=== PATIENT | male | born 1955 | race Caucasian/White ===

== ENCOUNTER → 2019-07-04 08:10 | Outpatient (CLI) | payer OTHER, MEDICARE, SELFPAY ==
[2019-07-04 08:58] LABS: Add Manual Diff / Slide Review NO; Basophils Absolute Auto 0 /uL (0-100); Basophils Percent Auto 0.8 % (0-2); Eosinophils Absolute Auto 300 /uL (0-450); Eosinophils Percent Auto 5.1 % (2-4); Hemoglobin 15.9 g/dL (13.5-17.5); Lymphocytes Absolute Auto 2800 /uL (1100-4500); Lymphocytes Percent Auto 53.3 % (25-40); Mean Corpuscular HGB Conc 34.6 % (30-36); Mean Corpuscular Hemoglobin 31.1 PG (26-34); Mean Corpuscular Volume 89.9 fL (80-100); Monocytes Absolute Auto 300 /uL (0-900); Monocytes Percent Auto 6.3 % (3-14); Neutrophils Absolute Auto 1800 /uL (1500-7000); Neutrophils Percent Auto 34.5 % (50-75); Platelet Count 257 X10^3/uL (150-400); Red Blood Cell Count 5.12 X10^6/uL (4.5-5.9); Red Cell Distribution Width 13.8 % (11.6-14.8); White Blood Cell Count 5.2 X10^3/uL (4.5-11.0)
[2019-07-04 09:11] LABS: Blood Urea Nitrogen 20 mg/dL (9-20); Carbon Dioxide 24 mmol/L (22-32); Chloride 105 mmol/L (98-107); Estimated Glomerular Filt Rate > 60.0 mL/min (>60); Glucose 145 mg/dL (80-110); HDL Cholesterol 41 mg/dL (40-60); HEMOLYSIS 16 (0-50); Potassium 4.1 mmol/L (3.4-5.1); Sodium 141 mmol/L (137-145)
[2019-07-04 09:13] LABS: Hemoglobin A1C% w Est Avg Glu 6.2 % (4.0-6.0)
[2019-07-04 09:34] LABS: Cholesterol 328 mg/dL (140-199); Triglycerides 640 mg/dL (35-150)
== END ==
PROVIDERS: PCP Family Medicine; Referring Provider Internal Medicine Cardiovascular Disease; Visit Provider Internal Medicine Cardiovascular Disease
DX: I25.10 Atherosclerotic heart disease of native coronary artery without angina pectoris (principal); E78.49 Other hyperlipidemia; Z95.5 Presence of coronary angioplasty implant and graft; I10 Essential (primary) hypertension
CPT/HCPCS: 36415; 80048; 80061; 83036; 85025

== ENCOUNTER → 2019-08-17 14:25 | Outpatient (CLI) | payer OTHER, SELFPAY ==
--- NOTE | 2019-08-17 14:31 | DI.RAD.S_ITS ---
PROCEDURE: XR LUMBAR SPINE 2-3V INDICATIONS: lbp TECHNIQUE: 3 views of the lumbar spine were acquired. COMPARISON: [facility], CT, KIDNEY/ URETER/BLADDER, 01/20/2008, 16:14. [facility], CR, L-SPINE 2-3 VIEWS, 01/25/2008, 11:17. FINDINGS: Bones: 5 [id number] vertebrae are present. There is normal bony alignment. No vertebral body compression fractures. No suspicious bony lesions. There is [id number] degenerative disc disease throughout the lumbar spine. Moderate disc severe facet arthropathy at L5-S1. There are large lateral osteophytes at T11-T12, T12-L1 and left L1-L2. Soft tissues: Overlying bowel gas pattern is normal. A couple of oval-shaped calcified density is noted just below the right L5 transverse process. Atherosclerotic calcifications of aorta. IMPRESSION: 1. Degenerative disc disease and facet arthropathy. 2. Large lateral osteophytes at T11-T12, T12-L1 and left L1-L2. 3. A couple of oval-shaped calcified density is noted just below the right L5 transverse process. The finding is of indeterminate nature. Diagnostic considerations may be calcified lymph node or artifact from stool content. 4. Atherosclerosis. Dictated by: Flores Parkinson M.D. on 08/17/2019 at 17:23 Approved by: Flores Parkinson M.D. on 08/17/2019 at 18:14
--- NOTE | 2019-08-17 14:31 | DI.CT.S_ITS ---
PROCEDURE: CT HEAD/BRAIN WO/W CON INDICATIONS: balance difficults HEARING LOSS ON LEFT TECHNIQUE: 4.5 mm thick angled axial sections acquired from the foramen magnum to the vertex both before and after the administration of intravenous contrast, with coronal and sagittal reformats. For radiation dose reduction, the following was used: automated exposure control, adjustment of mA and/or kV according to patient size. COMPARISON: [facility], CT, HEAD WITHOUT CONTRAST, 01/21/2016, 14:23. [facility], MR, STROKE PROTOCOL, 01/21/2016, 19:04. FINDINGS: Image quality: Excellent. CSF spaces: Basal cisterns are patent. No extra-axial fluid collections. Ventricles are symmetric in size and shape. Brain: No midline shift. No intracranial bleeds or masses. No abnormal intracranial enhancement. There is cerebral volume loss for age. There is minimal periventricular white matter chronic small vessel ischemic change. There is intracranial internal carotid artery atherosclerosis. Skull and face: Calvarium and visualized facial bones appear intact, without suspicious lesions. Sinuses: Bilateral maxillary sinus mucosal thickening. There is an air-fluid level in left maxillary sinus. The mastoids are clear. IMPRESSION: 1. No acute intracranial abnormalities. 2. Bilateral maxillary sinusitis. Dictated by: Flores Parkinson M.D. on 08/17/2019 at 16:45 Approved by: Flores Parkinson M.D. on 08/17/2019 at 17:51
[2019-08-17 16:04] LABS: BUN Creatinine Ratio 16.9 (6-22); Blood Urea Nitrogen 14 mg/dL (9-20); Estimated Glomerular Filt Rate > 60.0 mL/min (>60)
== END ==
PROVIDERS: PCP Family Medicine; Referring Provider Family Medicine; Visit Provider Family Medicine
DX: I63.9 Cerebral infarction, unspecified (principal); I25.10 Atherosclerotic heart disease of native coronary artery without angina pectoris; H91.92 Unspecified hearing loss, left ear; R26.9 Unspecified abnormalities of gait and mobility; M54.5 Low back pain; M47.817 Spondylosis without myelopathy or radiculopathy, lumbosacral region; J32.0 Chronic maxillary sinusitis; M51.36 Other intervertebral disc degeneration, lumbar region; M25.78 Osteophyte, vertebrae; I70.0 Atherosclerosis of aorta; E78.00 Pure hypercholesterolemia, unspecified; I10 Essential (primary) hypertension
CPT/HCPCS: 36415; 70470; 72100; 82565; 84520; Q9967

== ENCOUNTER 2020-03-21 13:45 | Outpatient (RCR) | payer OTHER, SELFPAY ==
--- NOTE | 2019-12-08 14:21 | PT.OIE ---
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) Benign paroxysmal vertigo, left ear (12/08/19) Dizziness and giddiness (12/08/19) Visit Care Team Role Provider Type Jus Kiser MD Primary Care Provider Physician Specialty: Family Practice Address: [facility] [place] [address] Email: [email or web address] Donald Garcia MD Attending Provider Physician Referring Provider Specialty: Ear, Nose, Throat Address: [address] [place] [address] Email: [email or web address] Physical Therapy Initial Evaluation PT-OP-A Visit Information Start: 12/08/19 13:53 Freq: Status: Active Protocol: Document 12/08/19 09:00 DCW (Rec: 12/08/19 14:21 DCW [id number]) Out-Patient Physical Therapy Visit Information Visit Information Visit Type Initial Evaluation Visit Start Time 09:00 Visit Stop Time 09:45 Total Visit Minutes 45 Visit Number 1 Number of GUN CLUB MANAGER Visits 0 Evaluation Information Evaluation Date 12/08/19 PT-OP-B Current Condition Start: 12/08/19 13:53 Freq: Status: Active Protocol: Document 12/08/19 09:00 DCW (Rec: 12/08/19 14:21 DCW [id number]) Current Condition History of Current Condition Onset Date 2 year history Current Complaints Position-dependent vertigo, constant lower-level imbalance History of Current Condition Pt is a 64 year old male complaining of a two year history of both spontaneous and motion-induced vertigo/ imbalance. Pt reports episodes of more intense dizziness when bending over to tie his shoes, lying back into bed, or sitting up from bed, but additionally reports feeling imbalance when up moving around. I feel like a bobble head, like everything is just bouncing around. Pt is also limited with his mobility due to long-standing back and leg pain, which prevents him from sitting or standing longer than ~30 minutes at a time. Pt denies recent hearing changes , tinnitus, diplopia, dysarthria, discoordination, or decreased mentation/ consciousness. Pt reports symptoms are waxing/waning in nature, and seem to worsen in the spring/summer when his allergies are bad, and he will occasionally get sinus infections. Treatment Goals Patient/Caregiver Goals Eliminate vertigo PT-OP-C Subjective Start: 12/08/19 13:53 Freq: Status: Active Protocol: Document 12/08/19 09:00 DCW (Rec: 12/08/19 14:21 DCW [id number]) OP-PT Subjective Patient Comments Patient Comments My left ear has been sort of plugged up recently. Patient Questionnaires Dizziness Handicap Inventory DHI Score 100% DHI Functional Impairment 100% Impaired (Score 100) PT-OP-O Vestibular Start: 12/08/19 13:53 Freq: Status: Active Protocol: Document 12/08/19 09:00 DCW (Rec: 12/08/19 14:21 DCW [id number]) Vestibular Assessment Auditory Tests Diana Test Negative Rinne Test Negative Air Conduction Results Equal Visual Testing Smooth Pursuits Horizontal WNL Smooth Pursuits Vertical WNL Saccades Horizontal WNL Saccades Vertical WNL Gaze Evoked Nystagmus With Fixation Negative Gaze Evoked Nystagmus Without Fixation Negative Heave Test Positive Bilateral Thrust Head Positive Bilateral Cover/Uncover Test WNL Jero String Test Impaired Convergence Test Impaired DVA (Line Degradation) 4 Head Shake Negative Positional Testing Sidelying Test Positive Left,Upbeating,< 60 Seconds Comments Vestibular Comments Jero String: While viewing two closest beads, pt still saw them doubled, left eye clearly diverging during this time, pt showed difficulty returning to focus Convergence testing: positive diplopia 10 cm from nose Thrust/heave test: mildly positive bilaterally Left Sidelying test: pt complained of vertigo and demonstrated up-beating, torsional nystagmus lasting approximately 10 seconds PT-OP-Q Treatments Start: 12/08/19 13:53 Freq: Status: Active Protocol: Document 12/08/19 09:00 DCW (Rec: 12/08/19 14:21 DCW [id number]) Canalithic Repositioning BPPV Treatment Silverio Affected Canal(s) L posterior Reps x1 Comments Modified Silveiro PT-OP-T Assessment and Plan Start: 12/08/19 13:53 Freq: Status: Active Protocol: Document 12/08/19 09:00 DCW (Rec: 12/08/19 14:21 DCW [id number]) Physical Therapy Assessment Rehab Potential Rehabilitation Potential Good Evaluation Complexity Number of Personal Factors/Comorbidities 3 or More Number of Body Systems Impaired 4 or More Clinical Presentation at Evaluation Unstable Impairments Impairments Balance,Pain,ROM,Vestibular Goals Three Impairment Pt experiences vertigo when bending down to tie his shoes Harvesting Contractor Goal (LTG) Pt to report two weeks of no vertigo with positional changes LTG Duration 01/19/20 Two Impairment Positive Left Sidelying test Care Home Goal (LTG) Positional testing negative bilaterally LTG Duration 01/19/20 One Impairment Pt complains of oscillopsia during gait Care Home Goal (LTG) Pt to report ability to walk down sidewalk without bobblehead sensation to improve stability during community ambulation LTG Duration 01/19/20 Assessment Summary Assessment During left Sidelying test, pt complained of vertigo and demonstrated up-beating, torsional nystagmus lasting approximately 10 seconds, consistent with diagnosis of left-sided posterior canal BPPV, canalithiasis-type. Pt was treated with a left-sided modified Silverio maneuver. Pt complained of symptoms in the first and third position, which is normally indicative of a successful treatment. Further positional testing was negative. Pt was educated on BPPV, expectations for treatment, possible recurrence (BPPV has a ~50% recurrence rate in the five years following treatment), and post -Silverio restrictions. Pt to return in ~1 week for a follow -up appointment, and intermittently afterward as indicated for treatment of BPPV. In addition to positional testing and the subjective complaints that were suggestive of BPPV, pt had additional complaints of Oscillopsia and instability when walking around, and had some other positive testing, such as an abnormal Jero string test, a 4 line degradation during DVA testing , and a 10 cm convergence limitation. These indicate a likely convergence insufficiency. Pt's instability may just be a secondary effect from BPPV, on may be a separate issue based on his convergence issues. Best test is to treat BPPV, and determine what symptoms remain following successful CRM. Physical Therapy Plan Frequency and Duration Frequency of Treatment 1x/Week Duration of Treatment 6 weeks Plan of Care Start Date 12/08/19 Plan of Care End Date 01/19/20 Therapeutic Interventions Therapeutic Interventions Balance Training,Canalithic Repositioning,Therapeutic Exercises,Vestibular Rehabilitation Next Visit Focus/Plan Next Note Type Treatment Note Next Visit Plan Positional testing, CRM as indicated
--- NOTE | 2019-12-08 14:23 | PT.OPPOC ---
Physical, Occupational & Speech Therapy At 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) Benign paroxysmal vertigo, left ear (12/08/19) Dizziness and giddiness (12/08/19) Visit Care Team Role Provider Type Jus Kiser MD Primary Care Provider Physician Specialty: Family Practice Address: [address] [place] [address], [id number] Email: [email or web address] Donald Garcia MD Attending Provider Physician Referring Provider Specialty: Ear, Nose, Throat Address: [address] [place] [address], [id number] Email: [email or web address] Of Care PT-OP-T Assessment and Plan Start: 12/08/19 13:53 Freq: Status: Active Protocol: Document 12/08/19 09:00 DCW (Rec: 12/08/19 14:21 DCW [id number]) Physical Therapy Assessment Rehab Potential Rehabilitation Potential Good Evaluation Complexity Number of Personal Factors/Comorbidities 3 or More Number of Body Systems Impaired 4 or More Clinical Presentation at Evaluation Unstable Impairments Impairments Balance,Pain,ROM,Vestibular Goals Three Impairment Pt experiences vertigo when bending down to tie his shoes Billing Machine Operator Goal (LTG) Pt to report two weeks of no vertigo with positional changes LTG Duration 01/19/20 Two Impairment Positive Left Sidelying test Residential Goal (LTG) Positional testing negative bilaterally LTG Duration 01/19/20 One Impairment Pt complains of oscillopsia during gait Billing Machine Operator Goal (LTG) Pt to report ability to walk down sidewalk without bobblehead sensation to improve stability during community ambulation LTG Duration 01/19/20 Assessment Summary Assessment During left Sidelying test, pt complained of vertigo and demonstrated up-beating, torsional nystagmus lasting approximately 10 seconds, consistent with diagnosis of left-sided posterior canal BPPV, canalithiasis-type. Pt was treated with a left-sided modified Silverio maneuver. Pt complained of symptoms in the first and third position, which is normally indicative of a successful treatment. Further positional testing was negative. Pt was educated on BPPV, expectations for treatment, possible recurrence (BPPV has a ~50% recurrence rate in the five years following treatment), and post -Silverio restrictions. Pt to return in ~1 week for a follow -up appointment, and intermittently afterward as indicated for treatment of BPPV. In addition to positional testing and the subjective complaints that were suggestive of BPPV, pt had additional complaints of Oscillopsia and instability when walking around, and had some other positive testing, such as an abnormal Jero string test, a 4 line degradation during DVA testing , and a 10 cm convergence limitation. These indicate a likely convergence insufficiency. Pt's instability may just be a secondary effect from BPPV, on may be a separate issue based on his convergence issues. Best test is to treat BPPV, and determine what symptoms remain following successful CRM. Physical Therapy Plan Frequency and Duration Frequency of Treatment 1x/Week Duration of Treatment 6 weeks Plan of Care Start Date 12/08/19 Plan of Care End Date 01/19/20 Therapeutic Interventions Therapeutic Interventions Balance Training,Canalithic Repositioning,Therapeutic Exercises,Vestibular Rehabilitation Next Visit Focus/Plan Next Note Type Treatment Note Next Visit Plan Positional testing, CRM as indicated Plan of Care Dates Plan of Care Start Date 12/08/19 Plan of Care End Date 01/19/20 Electronically Signed by: Tres Palmer, DUSTY 12/08/19 0179 Please Sign and Return: I have reviewed this Plan of Care and certify that the skilled therapy services above are required to meet the patient?s needs. Physician Signature Date Printed Name and Credentials Clinical Instructor Signature Printed Name and Credentials
--- NOTE | 2019-12-22 15:24 | PT.OTN ---
Current Diagnoses Convergence insufficiency (12/22/19) Benign paroxysmal vertigo, left ear (12/22/19) Dizziness and giddiness (12/22/19) Physical Therapy Treatment Note PT-OP-A Visit Information Start: 12/08/19 13:53 Freq: Status: Active Protocol: Document 12/22/19 11:25 DCW (Rec: 12/22/19 12:01 DCW [id number]) Out-Patient Physical Therapy Visit Information Visit Information Visit Type Treatment Note Visit Note 10 min late Visit Start Time 11:25 Visit Stop Time 12:00 Total Visit Minutes 35 Visit Number 2 Number of MEDICAL NURSE Visits 0 Evaluation Information Evaluation Date 12/08/19 PT-OP-B Current Condition Start: 12/08/19 13:53 Freq: Status: Active Protocol: Document 12/08/19 09:00 DCW (Rec: 12/08/19 14:21 DCW [id number]) Current Condition History of Current Condition Onset Date 2 year history Current Complaints Position-dependent vertigo, constant lower-level imbalance History of Current Condition Pt is a 64 year old male complaining of a two year history of both spontaneous and motion-induced vertigo/ imbalance. Pt reports episodes of more intense dizziness when bending over to tie his shoes, lying back into bed, or sitting up from bed, but additionally reports feeling imbalance when up moving around. I feel like a bobble head, like everything is just bouncing around. Pt is also limited with his mobility due to long-standing back and leg pain, which prevents him from sitting or standing longer than ~30 minutes at a time. Pt denies recent hearing changes , tinnitus, diplopia, dysarthria, discoordination, or decreased mentation/ consciousness. Pt reports symptoms are waxing/waning in nature, and seem to worsen in the spring/summer when his allergies are bad, and he will occasionally get sinus infections. Treatment Goals Patient/Caregiver Goals Eliminate vertigo PT-OP-C Subjective Start: 12/08/19 13:53 Freq: Status: Active Protocol: Document 12/22/19 11:25 DCW (Rec: 12/22/19 12:01 DCW [id number]) OP-PT Subjective Patient Comments Patient Comments Pt reports he did well after leaving his appointment, did okay in the morning, but then by the afternoon his entire body was sore, he had to take an asprin and then just went to bed. After that, he was able to move better, feels he is ~75% better as far as the dizziness goes. PT-OP-O Vestibular Start: 12/08/19 13:53 Freq: Status: Active Protocol: Document 12/22/19 11:25 DCW (Rec: 12/22/19 12:01 DCW [id number]) Vestibular Assessment Positional Testing Sidelying Test Negative Left,Negative Right PT-OP-Q Treatments Start: 12/08/19 13:53 Freq: Status: Active Protocol: Document 12/22/19 11:25 DCW (Rec: 12/22/19 15:24 DCW [id number]) Manual Therapy Treatment Other Other Manual Treatments Positional testing Neuro Re-Education Treatment Vestibular Rehabilitation Pencil push-ups Details Pencil push-ups Distance From Target as tolerated Speed slow Position sitting Corrective Saccades Details Eyes, then head Distance From Target arms length Speed as tolerated Position sitting X2 Viewing Details Target and head moving opposite directions Distance From Target arms length Speed as tolerated Position sitting X1 Viewing Details Target still, head moving Distance From Target arms length Speed as tolerated Position sitting VOR Retraining Details Target and eyes moving together Distance From Target arms length Speed as tolerated Position sitting PT-OP-T Assessment and Plan Start: 12/08/19 13:53 Freq: Status: Active Protocol: Document 12/22/19 11:25 DCW (Rec: 12/22/19 15:24 DCW [id number]) Physical Therapy Assessment Impairments Impairments Balance,Pain,ROM,Vestibular Goals Three Impairment Pt experiences vertigo when bending down to tie his shoes Penitentiary Goal (LTG) Pt to report two weeks of no vertigo with positional changes LTG Duration 01/19/20 Two Impairment Positive Left Sidelying test Penitentiary Goal (LTG) Positional testing negative bilaterally LTG Duration 01/19/20 One Impairment Pt complains of oscillopsia during gait Penitentiary Goal (LTG) Pt to report ability to walk down sidewalk without bobblehead sensation to improve stability during community ambulation LTG Duration 01/19/20 Assessment Summary Assessment Pt positional testing negative today, however he continues to have some difficulty with visual tracking and oscillopsia. Pt had significant difficulty with VOR and X1 exercises, and he will likely benefit from skilled vestibular therapy focusing on oculomotor TherEx, Habituation, and Adaptation Physical Therapy Plan Frequency and Duration Frequency of Treatment 1x/Week Duration of Treatment 6 weeks Plan of Care Start Date 12/08/19 Plan of Care End Date 01/19/20 Therapeutic Interventions Therapeutic Interventions Balance Training,Canalithic Repositioning,Therapeutic Exercises,Vestibular Rehabilitation Next Visit Focus/Plan Next Note Type Treatment Note Next Visit Plan Positional testing, CRM as indicated, VOR training, convergence training.
--- NOTE | 2020-01-24 15:26 | PT.OTN ---
Current Diagnoses Convergence insufficiency (01/24/20) Benign paroxysmal vertigo, left ear (01/24/20) Dizziness and giddiness (01/24/20) Physical Therapy Treatment Note PT-OP-A Visit Information Start: 12/08/19 13:53 Freq: Status: Active Protocol: Document 01/24/20 14:30 DCW (Rec: 01/24/20 15:26 DCW [id number]) Out-Patient Physical Therapy Visit Information Visit Information Visit Type Treatment Note Visit Start Time 14:30 Visit Stop Time 15:15 Total Visit Minutes 45 Visit Number 3 Number of YARN FINISHER Visits 0 Evaluation Information Evaluation Date 12/08/19 PT-OP-B Current Condition Start: 12/08/19 13:53 Freq: Status: Active Protocol: Document 12/08/19 09:00 DCW (Rec: 12/08/19 14:21 DCW [id number]) Current Condition History of Current Condition Onset Date 2 year history Current Complaints Position-dependent vertigo, constant lower-level imbalance History of Current Condition Pt is a 64 year old male complaining of a two year history of both spontaneous and motion-induced vertigo/ imbalance. Pt reports episodes of more intense dizziness when bending over to tie his shoes, lying back into bed, or sitting up from bed, but additionally reports feeling imbalance when up moving around. I feel like a bobble head, like everything is just bouncing around. Pt is also limited with his mobility due to long-standing back and leg pain, which prevents him from sitting or standing longer than ~30 minutes at a time. Pt denies recent hearing changes , tinnitus, diplopia, dysarthria, discoordination, or decreased mentation/ consciousness. Pt reports symptoms are waxing/waning in nature, and seem to worsen in the spring/summer when his allergies are bad, and he will occasionally get sinus infections. Treatment Goals Patient/Caregiver Goals Eliminate vertigo PT-OP-C Subjective Start: 12/08/19 13:53 Freq: Status: Active Protocol: Document 01/24/20 14:30 DCW (Rec: 01/24/20 15:26 DCW [id number]) OP-PT Subjective Patient Comments Patient Comments Pt fatigued after doing a lot of yard work yesterday. Has been doing some of his eyes exercises, probably not as often as I should. Feels like things have improved somewhat , but he gets a head bobbing sensation with the whirlies when he tries to close his eyes when up standing. PT-OP-O Vestibular Start: 12/08/19 13:53 Freq: Status: Active Protocol: Document 01/24/20 14:30 DCW (Rec: 01/24/20 15:26 DCW [id number]) Vestibular Assessment Positional Testing Tom-Hallpike Positive Left,Negative Right, Upbeating,< 60 Seconds Rolling Test Negative Left,Negative Right PT-OP-Q Treatments Start: 12/08/19 13:53 Freq: Status: Active Protocol: Document 01/24/20 14:30 DCW (Rec: 01/24/20 15:26 DCW [id number]) Manual Therapy Treatment Other Other Manual Treatments Positional testing Neuro Re-Education Treatment Balance Activities BDE Details BDEs x5 each side Vestibular Rehabilitation Pencil push-ups Details Pencil push-ups Distance From Target as tolerated Speed slow Position sitting X1 Viewing Details Target still, head moving Distance From Target arms length Speed as tolerated Position sitting VOR Retraining Details Target and eyes moving together Distance From Target arms length Speed as tolerated Position sitting Canalithic Repositioning BPPV Treatment Silverio Affected Canal(s) L posterior Reps x1 Comments Modified Silverio PT-OP-T Assessment and Plan Start: 12/08/19 13:53 Freq: Status: Active Protocol: Document 01/24/20 14:30 DCW (Rec: 01/24/20 15:26 DCW [id number]) Physical Therapy Assessment Impairments Impairments Balance,Pain,ROM,Vestibular Goals Three Impairment Pt experiences vertigo when bending down to tie his shoes Computing Consultant Goal (LTG) Pt to report two weeks of no vertigo with positional changes LTG Duration 03/25/20 Two Impairment Positive Left Sidelying test Computing Consultant Goal (LTG) Positional testing negative bilaterally LTG Duration 03/25/20 One Impairment Pt complains of oscillopsia during gait Jail Goal (LTG) Pt to report ability to walk down sidewalk without bobblehead sensation to improve stability during community ambulation LTG Duration 03/25/20 Assessment Summary Assessment Pt positional testing vaguely positive today. Some complaints of mild vertigo, no true nystagmus. Performed modified Silverio maneuver, pt reported feeling a bit better. Still complains of Oscillopsia. Seemed to respond well to BDEs, felt much better after a x5 cycle. Physical Therapy Plan Frequency and Duration Frequency of Treatment 1x/Week Duration of Treatment 10 weeks Plan of Care Start Date 01/24/20 Plan of Care End Date 04/03/20 Therapeutic Interventions Therapeutic Interventions Balance Training,Canalithic Repositioning,Therapeutic Exercises,Vestibular Rehabilitation Next Visit Focus/Plan Next Note Type Treatment Note Next Visit Plan Positional testing, CRM as indicated, VOR training, convergence training.
--- NOTE | 2020-02-07 14:52 | PT.OTN ---
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 Pt reports episodes of more intense dizziness when bending over to tie his shoes, lying back into bed, or sitting up from bed, but additionally reports feeling imbalance when up moving around. I feel like a bobble head, like everything is just bouncing around. Pt is also limited with his mobility due to long-standing back and leg pain, which prevents him from sitting or standing longer than ~30 minutes at a time. Pt denies recent hearing changes , tinnitus, diplopia, dysarthria, discoordination, or decreased mentation/ consciousness. Pt reports symptoms are waxing/waning in nature, and seem to worsen in the spring/summer when his allergies are bad, and he will occasionally get sinus infections. Treatment Goals Patient/Caregiver Goals Eliminate vertigo PT-OP-C Subjective Start: 12/08/19 13:53 Freq: Status: Active Protocol: Document 02/07/20 14:30 DCW (Rec: 02/07/20 14:52 DCW [id number]) OP-PT Subjective Patient Comments Patient Comments I think I'm better. Pt notes he doesn't notice it, pretty much at all. Has been working in the yard, gets down, gets up, just kind of get on throughout my day. PT-OP-O Vestibular Start: 12/08/19 13:53 Freq: Status: Active Protocol: Document 02/07/20 14:30 DCW (Rec: 02/07/20 14:52 DCW [id number]) Vestibular Assessment Positional Testing Sidelying Test Negative Left,Negative Right PT-OP-Q Treatments Start: 12/08/19 13:53 Freq: Status: Active Protocol: Document 02/07/20 14:30 DCW (Rec: 02/07/20 14:52 DCW [id number]) Manual Therapy Treatment Other Other Manual Treatments Positional testing PT-OP-T Assessment and Plan Start: 12/08/19 13:53 Freq: Status: Active Protocol: Document 02/07/20 14:30 DCW (Rec: 02/07/20 14:52 DCW [id number]) Physical Therapy Assessment Impairments Impairments Balance,Pain,ROM,Vestibular Goals Three Impairment Pt experiences vertigo when bending down to tie his shoes Senior Care Goal (LTG) Pt to report two weeks of no vertigo with positional changes LTG Duration 03/25/20 Two Impairment Positive Left Sidelying test Platen Press Feeder Goal (LTG) Positional testing negative bilaterally LTG Duration 03/25/20 One Impairment Pt complains of oscillopsia during gait Senior Care Goal (LTG) Pt to report ability to walk down sidewalk without bobblehead sensation to improve stability during community ambulation LTG Duration 03/25/20 Assessment Summary Assessment Pt positional testing entirely negative today. Pt feels asymptomatic at this time. Pt will schedule a follow-up with -in the next 4 weeks, with plan to cancel if he remains asymptomatic. If pt does cancel that visit, he will be discharged at that time. Physical Therapy Plan Frequency and Duration Frequency of Treatment 1x/Week Duration of Treatment 10 weeks Plan of Care Start Date 01/24/20 Plan of Care End Date 04/03/20 Therapeutic Interventions Therapeutic Interventions Balance Training,Canalithic Repositioning,Therapeutic Exercises,Vestibular Rehabilitation Next Visit Focus/Plan Next Note Type Treatment Note Next Visit Plan Positional testing, CRM as indicated, VOR training, convergence training.
--- NOTE | 2020-03-21 14:20 | PT.OPDS ---
Current Diagnoses Convergence insufficiency (03/21/20) Benign paroxysmal vertigo, left ear (03/21/20) Dizziness and giddiness (03/21/20) Visit Care Team Role Provider Type Jus Kiser MD Primary Care Provider Physician Specialty: Family Practice Address: [facility] [place], [address] Email: [email or web address] Donald Garcia MD Attending Provider Physician Referring Provider Specialty: Ear, Nose, Throat Address: [address] [place] [address], [facility] Email: [email or web address] Visit Number Visit Number 5 Discharge Summary PT-OP-B Current Condition Start: 12/08/19 13:53 Freq: Status: Active Protocol: Document 12/08/19 09:00 DCW (Rec: 12/08/19 14:21 DCW [id number]) Current Condition History of Current Condition Onset Date 2 year history Current Complaints Position-dependent vertigo, constant lower-level imbalance History of Current Condition Pt is a 64 year old male complaining of a two year history of both spontaneous and motion-induced vertigo/ imbalance. Pt reports episodes of more intense dizziness when bending over to tie his shoes, lying back into bed, or sitting up from bed, but additionally reports feeling imbalance when up moving around. I feel like a bobble head, like everything is just bouncing around. Pt is also limited with his mobility due to long-standing back and leg pain, which prevents him from sitting or standing longer than ~30 minutes at a time. Pt denies recent hearing changes , tinnitus, diplopia, dysarthria, discoordination, or decreased mentation/ consciousness. Pt reports symptoms are waxing/waning in nature, and seem to worsen in the spring/summer when his allergies are bad, and he will occasionally get sinus infections. Treatment Goals Patient/Caregiver Goals Eliminate vertigo PT-OP-C Subjective Start: 12/08/19 13:53 Freq: Status: Active Protocol: Document 03/21/20 13:46 DCW (Rec: 03/21/20 14:19 DCW [id number]) OP-PT Subjective Patient Comments Patient Comments I just bassam wanted to make sure everything is still okay. My back is bothering me, which makes me a little off, but I might still be a little woozy. PT-OP-O Vestibular Start: 12/08/19 13:53 Freq: Status: Active Protocol: Document 03/21/20 13:46 DCW (Rec: 03/21/20 14:19 DCW [id number]) Vestibular Assessment Visual Testing Smooth Pursuits Horizontal WNL Smooth Pursuits Vertical WNL Cover/Uncover Test WNL Jero String Test Impaired Convergence Test 5 cm Positional Testing Sidelying Test Negative Left,Negative Right Supine to Sit Negative Comments Vestibular Comments Convergence improved 10 cm to 5 cm, struggled with Jero string testing with closest bead, improved from closest two beads at eval PT-OP-T Assessment and Plan Start: 12/08/19 13:53 Freq: Status: Active Protocol: Document 03/21/20 13:46 DCW (Rec: 03/21/20 14:19 DCW [id number]) Physical Therapy Assessment Impairments Impairments Balance,Pain,ROM,Vestibular Goals Three Impairment Pt experiences vertigo when bending down to tie his shoes Poultry Farmer Egg Goal (LTG) Pt to report two weeks of no vertigo with positional changes LTG Duration 03/25/20 - Improving Two Impairment Positive Left Sidelying test Poultry Farmer Egg Goal (LTG) Positional testing negative bilaterally LTG Duration Met One Impairment Pt complains of oscillopsia during gait Custodial Goal (LTG) Pt to report ability to walk down sidewalk without bobblehead sensation to improve stability during community ambulation LTG Duration 03/25/20 - Improving Assessment Summary Assessment Pt largely negative again today, still does have some difficulty with convergence, although much improved compared to initial evaluation. Pt reports now most of his complaints appear to be associated with his low back pain just making him feel unstable. Pt instructed to continue working on vestibular /convergence HEP. Will continue to improve independently, and will be discharged from skilled therapy at this time. Physical Therapy Plan Frequency and Duration Frequency of Treatment 1x/Week Duration of Treatment 10 weeks Plan of Care Start Date 01/24/20 Plan of Care End Date 04/03/20 Therapeutic Interventions Therapeutic Interventions Balance Training,Canalithic Repositioning,Therapeutic Exercises,Vestibular Rehabilitation Discharge Physical Therapy Discharge Comments D/c to Independent HEP Next Visit Focus/Plan Next Note Type Treatment Note Next Visit Plan Positional testing, CRM as indicated, VOR training, convergence training.
== END 2020-04-17 08:17 ==
LOC: PHYS 13:45
PROVIDERS: PCP Family Medicine; Referring Provider Otolaryngology; Visit Provider Otolaryngology
DX: H81.12 Benign paroxysmal vertigo, left ear (principal); H51.11 Convergence insufficiency
CPT/HCPCS: 95992; 97112; 97140; 97162

== ENCOUNTER → 2020-10-09 07:09 | Outpatient (CLI) | payer OTHER, SELFPAY ==
[2020-10-09 08:18] LABS: Add Manual Diff / Slide Review NO; Basophils Absolute Auto 0 /uL (0-100); Basophils Percent Auto 0.7 % (0-2); Eosinophils Absolute Auto 300 /uL (0-450); Hematocrit 43.2 % (41-53); Hemoglobin 14.8 g/dL (13.5-17.5); Lymphocytes Absolute Auto 2800 /uL (1100-4500); Mean Corpuscular HGB Conc 34.2 % (30-36); Mean Corpuscular Hemoglobin 30.6 PG (26-34); Mean Corpuscular Volume 89.4 fL (80-100); Monocytes Absolute Auto 500 /uL (0-900); Monocytes Percent Auto 8.9 % (3-14); Neutrophils Absolute Auto 2300 /uL (1500-7000); Neutrophils Percent Auto 38.4 % (50-75); Platelet Count 256 X10^3/uL (150-400); Red Blood Cell Count 4.83 X10^6/uL (4.5-5.9); Red Cell Distribution Width 14.1 % (11.6-14.8)
[2020-10-09 08:36] LABS: Alanine Aminotransferase 110 IU/L (<50); Albumin 4.7 g/dL (3.5-5.0); Albumin Globulin Ratio 1.7 (1.0-2.8); Alkaline Phosphatase 84 U/L (38-126); Aspartate Aminotransferase 81 IU/L (17-59); BUN Creatinine Ratio 16.9 (6-22); Bilirubin Total 0.2 mg/dL (0.2-1.3); Blood Urea Nitrogen 14 mg/dL (9-20); Carbon Dioxide 27 mmol/L (22-32); Chloride 104 mmol/L (98-107); Cholesterol 259 mg/dL (140-199); Estimated Glomerular Filt Rate > 60.0 mL/min (>60); Globulin 2.8 g/dL (1.7-4.1); Glucose 148 mg/dL (80-110); HDL Cholesterol 36 mg/dL (40-60); HEMOLYSIS < 15 (0-50); LDL Cholesterol Calculated 157 mg/dL (<100); Potassium 4.7 mmol/L (3.4-5.1); Sodium 140 mmol/L (137-145); Total Protein 7.5 g/dL (6.3-8.2); Triglycerides 329 mg/dL (35-150)
[2020-10-09 09:13] LABS: Microalbumin Urine Random < 0.6 mg/dL (0-1.6)
== END ==
PROVIDERS: PCP Family Medicine; Referring Provider Family Medicine; Visit Provider Family Medicine
DX: E11.9 Type 2 diabetes mellitus without complications (principal); E66.01 Morbid (severe) obesity due to excess calories; E78.00 Pure hypercholesterolemia, unspecified; I25.10 Atherosclerotic heart disease of native coronary artery without angina pectoris
CPT/HCPCS: 36415; 80053; 80061; 82043; 82570; 83036; 85025

== ENCOUNTER → 2021-01-16 15:36 | Outpatient (CLI) | payer OTHER, SELFPAY ==
[2021-01-16 16:43] LABS: Hemoglobin A1C% w Est Avg Glu 6.7 % (4.0-6.0)
[2021-01-16 16:47] LABS: Glucose 125 mg/dL (80-110)
== END ==
PROVIDERS: PCP Family Medicine; Referring Provider Family Medicine; Visit Provider Family Medicine
DX: E11.9 Type 2 diabetes mellitus without complications (principal)
CPT/HCPCS: 36415; 82947; 83036

== ENCOUNTER 2021-09-20 21:48 | Emergency (ER) | payer OTHER, SELFPAY ==
[2021-09-20 21:54] VITALS: BP 163/84; PULSE 85; RESP 20; TEMP 36.8; O2SAT 97; BMI 36.3
--- NOTE | 2021-09-20 22:09 | ED_ITS ---
HPI - Back Pain/Injury General Chief Complaint: Back Pain/Injury Stated Complaint: Back Pain Time Seen by Provider: 09/20/21 21:55 Source: patient and family Related Data Home Medications Medication Instructions Recorded Confirmed nitroglycerin 0.4 mg sublingual 0.4 mg SUBLINGUAL PRN #0 11/07/12 01/21/21 tablet (Nitrostat) Previous Rx's Medication Instructions Recorded aspirin 325 mg tablet,delayed 325 mg PO QDAY #90 tab 01/16/19 release potassium chloride 10 mEq See Rx Instructions .ROUTE 12/18/20 tablet,extended release .COMPLEX #90 tablet amlodipine 10 mg tablet See Rx Instructions .ROUTE 06/06/21 .COMPLEX #90 tab lisinopril 40 mg tablet See Rx Instructions .ROUTE 06/06/21 .COMPLEX #90 tab furosemide 40 mg tablet (Lasix) 40 mg PO DAILY #90 tab 06/18/21 metformin 500 mg tablet See Rx Instructions .ROUTE 09/16/21 .COMPLEX #90 tab gabapentin 300 mg capsule 300 mg PO BEDTIME #14 cap 09/21/21 Allergies Allergy/AdvReac Type Severity Reaction Status Date / Time prednisone [PREDNISONE] Allergy Mild affects Verified 01/21/21 14:01 adrenal system Patient History Social History marital status: Smoking Status: Never smoker alcohol intake: current (ON OCCASION ) substance use type: does not use Smoking Status: Never smoker alcohol intake frequency: 0-2 drinks per day Alcohol type: wine Substance Use Type: does not use Exam Initial Vital Signs Initial Vital Signs: Vital Signs Temperature 98.3 F 09/20/21 21:54 Pulse Rate 85 09/20/21 21:54 Respiratory Rate 20 09/20/21 21:54 Blood Pressure 163/84 H 09/20/21 21:54 Pulse Oximetry 97 09/20/21 21:54 Course Orders Ordered: ED Orders 09/20/21 22:00 BMP [Basic Metabolic Panel] Stat CBC Auto Diff [Complete Blood Count AUTO DIFF] Stat CRP [C-Reactive Protein Quant] Stat ESR [Erythrocyte Sedimentation Rate] Stat 09/20/21 22:32 CT lumbar spine w con Stat Discontinued Medications Gabapentin (Gabapentin 300 Mg Capsule) 300 mg PO NOW ONE Stop: 09/20/21 22:14 Last Admin: 09/20/21 22:23 Dose: 300 mg Documented by: ABI Lidocaine (Lidocaine Patch 1 Each Adh..Patch) 1 each TOP NOW ONE Stop: 09/20/21 22:14 Last Admin: 09/20/21 22:23 Dose: 1 each Documented by: ABI Vital Signs Vital signs: Vital Signs - 8 hr 09/20/21 21:54 09/20/21 22:23 09/20/21 22:30 Temperature 98.3 F Pulse Rate 85 72 71 Respiratory Rate 20 26 H 18 Blood Pressure 163/84 H 125/58 L Pulse Oximetry 97 93 94 09/20/21 22:55 09/20/21 23:00 Temperature Pulse Rate 72 70 Respiratory Rate 20 20 Blood Pressure 148/71 H 131/62 Pulse Oximetry 96 95 MDM - Back Pain/Injury Lab Data Result diagrams: 09/20/21 22:00 09/20/21 22:00 Labs: Lab Results 09/20/21 09/20/21 Range/Units 22:00 22:00 WBC 8.3 (4.5-11.0) X10^3/uL RBC 4.79 (4.5-5.9) X10^6/uL Hgb 14.3 (13.5-17.5) g/dL Hct 41.8 (41-53) % MCV 87.3 (80-100) fL MCH 29.8 (26-34) PG MCHC 34.2 (30-36) % RDW 14.8 (11.6-14.8) % Plt Count 259 (150-400) X10^3/uL Neut % (Auto) 39.1 L (50-75) % Lymph % (Auto) 49.4 H (25-40) % White % (Auto) 7.1 (3-14) % Eos % (Auto) 3.7 (2-4) % Baso % (Auto) 0.7 (0-2) % Neut # (Auto) 3200 (0188-4750) /uL Lymph # (Auto) 4100 (9120-6238) /uL White # (Auto) 600 (0-900) /uL Eos # (Auto) 300 (0-450) /uL Baso # (Auto) 100 (0-100) /uL ESR 13 (0-15) MM/HR Sodium 146 H (137-145) mmol/L Potassium 4.0 (3.4-5.1) mmol/L Chloride 109 H (98-107) mmol/L Carbon Dioxide 19 L (22-32) mmol/L BUN 13 (9-20) mg/dL Creatinine 0.74 (0.66-1.25) mg/dL Estimated GFR > 60 (>60) mL/min BUN/Creatinine Ratio 17.6 (6-22) Glucose 160 H (80-110) mg/dL Calcium 9.6 (8.4-10.2) mg/dL C-Reactive Protein 0.8 (<1.0) mg/dL Imaging Data Lumbar w/contrast: Radiologist's Impression: Launch?[address] [address] [address] Scan Report Signed Patient: Hema Mccarthy MR#: [id number] : 1955 Acct:[id number] Age/Sex: 66 / M Date of Service: 09/20/21 Loc: ED Accession Number: [id number] ?? Procedure: CT lumbar spine w con Ordering Provider: Reji David D.O. PROCEDURE:? CT LUMBAR SPINE W CON ? INDICATIONS:? severe lumbar pain with radiculopathy ? TECHNIQUE:? After the administration of intravenous Isovue contrast, 3 mm thick sections acquired through the levels of interest.? Sagittal and coronal reformats were then constructed.? For radiation dose reduction, the following was used:? automated exposure control.? ? COMPARISON:? None. ? FINDINGS:? Image quality:? Excellent.? ? Bones:? Chronic appearing mild degenerative disc disease and kwao-om-llscmhui facet osteoarthritis is present along the lumbosacral spine and low thoracic spine.? No trauma found.? No sign of osteoporotic compression fracture. ? Soft tissues:? No evidence of tumor or infection. ? IMPRESSION:? A source of acute onset back pain is not found.? Currently there is a dbop-ue-eizaavyd degree of degenerative changes involving the disc spaces and facet joints but no sign of compression fracture, trauma, infection, or neoplasm.? Follow-up by MR scanning may become necessary.? MR scanning can detect disc herniations or other disease processes involving the spinal region that may not be visible by CT scanning. ? ? Dictated by: Kishor Ge M.D. on 09/20/2021 at 23:24 ? ? Approved by: Kishor Ge M.D. on 09/20/2021 at 23:27 ? MDM Narrative Medical decision making narrative: Multiple etiologies of back pain considered including; Epidural abscess, cauda equina, mass occupying lesion, and other considered, however no red flag findings consistent with neuro surgical emergencies are present Multiple etiologies for patient's symptoms considered including Patient's symptoms improved over duration of stay with above-stated therapies. Findings and discharge diagnosis discussed with patient/family followed by verbalization of understanding Return precautions discussed with patient/family whom verbalize understanding. Discharge Plan Departure Patient Disposition: Home Clinical Impression: Acute lumbar radiculopathy, Chronic back pain Instructions: DI for Low Back Pain Activity Restrictions/Additional Instructions: *You have been diagnosed with [ Acute on chronic lumbar pain with radic ulopathy. As we discussed your physical exam, labs and imaging tonight are very reassuring] *What to do: *Please continue to take your regular medications as directed. [ x] New medication prescriptions sent to your pharmacy: [ [facility]] [ ] New medication written as a paper prescription [ ] No new medications given *Please follow up with your primary care provider in 2-3 days, call for an appointment. Let them know you were seen in the Emergency Department and that we ask that you be seen in follow up. We will electronically transmit a record of today's note if your PCP is in our system *If you do not have a primary care provider please contact the [facility] Resource line at [phone]. They will ask some questions about your medical history and help get you set up with a doctor in the community. *Return to Emergency Department if you should have any new, worsening or concerning symptoms, such as [fever greater than 101 F, shaking chills, worsening pain, persistent vomiting, leg weakness, loss of control of bowel or bladder or other concerning symptoms Prescriptions: New gabapentin 300 mg capsule 300 mg PO BEDTIME Qty: 14 0RF No Action nitroglycerin [Nitrostat] 0.4 MG tablet, sublingual 0.4 mg Sublingual PRN Qty: 0 0RF aspirin 325 mg tablet,delayed release (DR/EC) 325 mg PO QDAY Qty: 90 0RF potassium chloride 10 mEq tablet extended release See Rx Instructions .ROUTE .COMPLEX Qty: 90 0RF Dose Instruction: take 1 tablet by mouth once daily Rx Instructions: take 1 tablet by mouth once daily amlodipine 10 mg tablet See Rx Instructions .ROUTE .COMPLEX Qty: 90 2RF Dose Instruction: Take 1 tablet (10 mg) by mouth daily Rx Instructions: Take 1 tablet (10 mg) by mouth daily lisinopril 40 mg tablet See Rx Instructions .ROUTE .COMPLEX Qty: 90 2RF Dose Instruction: Take 1 tablet (40 mg) by mouth daily Rx Instructions: Take 1 tablet (40 mg) by mouth daily furosemide [Lasix] 40 mg tablet 40 mg PO DAILY Qty: 90 1RF metformin 500 mg tablet See Rx Instructions .ROUTE .COMPLEX Qty: 90 1RF Dose Instruction: Take 1 tablet (500 mg) by mouth daily Rx Instructions: Take 1 tablet (500 mg) by mouth daily Referrals: Jus Kiser MD [Primary Care Provider] -
--- NOTE | 2021-09-20 22:14 | PC.NURSE ---
Pt states pain is in his lower back. Unable at this time to describe further detail. Denies any numbness, tingling, or difficulty urinating or having a BM.
[2021-09-20 22:23] VITALS: PULSE 72; RESP 26; O2SAT 93
[2021-09-20] MEDS: GABAPENTIN 300 MG CAPSULE PO (22:23)
[2021-09-20] MEDS: LIDOCAINE PATCH 1 EACH ADH..PATCH TOP (22:23)
[2021-09-20 22:30] VITALS: BP 125/58; PULSE 71; RESP 18; O2SAT 94
--- NOTE | 2021-09-20 22:32 | DI.CT.S_ITS ---
PROCEDURE: CT LUMBAR SPINE W CON INDICATIONS: severe lumbar pain with radiculopathy TECHNIQUE: After the administration of intravenous Isovue contrast, 3 mm thick sections acquired through the levels of interest. Sagittal and coronal reformats were then constructed. For radiation dose reduction, the following was used: automated exposure control. COMPARISON: None. FINDINGS: Image quality: Excellent. Bones: Chronic appearing mild degenerative disc disease and eubt-cu-vqncvywq facet osteoarthritis is present along the lumbosacral spine and low thoracic spine. No trauma found. No sign of osteoporotic compression fracture. Soft tissues: No evidence of tumor or infection. IMPRESSION: A source of acute onset back pain is not found. Currently there is a lfeu-hd-lufyqdgy degree of degenerative changes involving the disc spaces and facet joints but no sign of compression fracture, trauma, infection, or neoplasm. Follow-up by MR scanning may become necessary. MR scanning can detect disc herniations or other disease processes involving the spinal region that may not be visible by CT scanning. Dictated by: Kishor Ge M.D. on 09/20/2021 at 23:24 Approved by: Kishor Ge M.D. on 09/20/2021 at 23:27
[2021-09-20 22:38] LABS: Add Manual Diff / Slide Review NO; Basophils Absolute Auto 100 /uL (0-100); Basophils Percent Auto 0.7 % (0-2); Eosinophils Absolute Auto 300 /uL (0-450); Eosinophils Percent Auto 3.7 % (2-4); Hematocrit 41.8 % (41-53); Hemoglobin 14.3 g/dL (13.5-17.5); Lymphocytes Absolute Auto 4100 /uL (1100-4500); Lymphocytes Percent Auto 49.4 % (25-40); Mean Corpuscular HGB Conc 34.2 % (30-36); Mean Corpuscular Hemoglobin 29.8 PG (26-34); Mean Corpuscular Volume 87.3 fL (80-100); Monocytes Absolute Auto 600 /uL (0-900); Monocytes Percent Auto 7.1 % (3-14); Neutrophils Absolute Auto 3200 /uL (1500-7000); Neutrophils Percent Auto 39.1 % (50-75); Platelet Count 259 X10^3/uL (150-400); Red Blood Cell Count 4.79 X10^6/uL (4.5-5.9); Red Cell Distribution Width 14.8 % (11.6-14.8); White Blood Cell Count 8.3 X10^3/uL (4.5-11.0)
[2021-09-20 22:53] LABS: BUN Creatinine Ratio 17.6 (6-22); Blood Urea Nitrogen 13 mg/dL (9-20); C-Reactive Protein Quant 0.8 mg/dL (<1.0); Calcium 9.6 mg/dL (8.4-10.2); Carbon Dioxide 19 mmol/L (22-32); Chloride 109 mmol/L (98-107); Estimated Glomerular Filt Rate > 60 mL/min (>60); Glucose 160 mg/dL (80-110); HEMOLYSIS 15 (0-50); Sodium 146 mmol/L (137-145)
[2021-09-20 22:55] VITALS: BP 148/71; PULSE 72; RESP 20; O2SAT 96
[2021-09-20 22:59] LABS: Erythrocyte Sedimentation Rate 13 MM/HR (0-15)
[2021-09-20 23:00] VITALS: BP 131/62; PULSE 70; RESP 20; O2SAT 95
[2021-09-20 23:59] VITALS: BP 123/62; PULSE 64; O2SAT 93
[2021-09-21] VITALS: BP 121/60; PULSE 64; O2SAT 93
== END 2021-09-21 00:21 | disposition home or self-care (01) ==
PROVIDERS: Emergency Provider Emergency Medicine; PCP Family Medicine
DX: M54.16 Radiculopathy, lumbar region (principal); G89.29 Other chronic pain
CPT/HCPCS: 72132; 80048; 85025; 85651; 86140; 99283; 99284; Q9967

== ENCOUNTER → 2021-10-07 06:34 | Outpatient (CLI) | payer OTHER, SELFPAY ==
--- NOTE | 2021-10-07 06:35 | DI.MRI.S_ITS ---
PROCEDURE: MR LUMBAR SPINE WO CON INDICATIONS: lbp with ridiculopathy TECHNIQUE: Noncontrast sagittal T1 spin echo and T2 fast echo, sagittal STIR, and T2 fast spin echo through the lumbar spine. In cases with scoliosis, additional coronal T2 fast spin echo may be performed. COMPARISON: CR, XR LUMBAR SPINE 2-3V, 08/17/2019, 15:08. FINDINGS: Image quality: Excellent. Alignment and Curvature: There is normal bony alignment. Bone Marrow: Benign, intraosseous hemangioma noted in the L1 vertebral body. No acute vertebral body compression fractures. Spinal Cord: Conus medullaris terminates at the L1 level. Visualized cord demonstrates normal signal and size. Paraspinous Soft Tissues: No paravertebral masses. T12-L1: Normal appearance. L1-L2: Slight loss of disc signal. Mild, diffuse disc bulge. No central stenosis. No neural foraminal narrowing. No neural compression. L2-L3: Slight loss of disc signal. Mild, diffuse disc bulge. Mild bilateral facet hypertrophy. Mild narrowing of the central canal. Mild bilateral neural foraminal narrowing. No neural compression. L3-L4: Slight loss of disc signal. Mild, diffuse disc bulge. Mild bilateral facet hypertrophy. Mild narrowing of the central canal. Mild bilateral neural foraminal narrowing. No neural compression. L4-L5: Slight loss of disc signal. Mild, diffuse disc bulge. Mild bilateral facet hypertrophy. Mild narrowing of the central canal. Mild bilateral neural foraminal narrowing. No neural compression. L5-S1: Slight loss of disc signal. Mild to moderate bilateral facet hypertrophy. No central stenosis. Mild bilateral neural foraminal narrowing. No neural compression. IMPRESSION: 1. Multilevel degenerative disc disease. 2. Multilevel facet arthropathy. 3. No severe central canal narrowing. 4. No severe neural foraminal narrowing. 5. No neural compression. Dictated by: Nell Rolon MD, PhD on 10/07/2021 at 12:03 Approved by: Nell Rolon MD, PhD on 10/07/2021 at 12:23
== END ==
PROVIDERS: PCP Family Medicine; Referring Provider Family Medicine; Visit Provider Family Medicine
DX: M51.16 Intervertebral disc disorders with radiculopathy, lumbar region (principal); M47.26 Other spondylosis with radiculopathy, lumbar region; M47.27 Other spondylosis with radiculopathy, lumbosacral region
CPT/HCPCS: 72148

== ENCOUNTER → 2022-02-16 07:29 | Outpatient (CLI) | payer OTHER, SELFPAY ==
[2022-02-16 10:35] LABS: Alanine Aminotransferase 38 IU/L (<50); Albumin 4.5 g/dL (3.5-5.0); Albumin Globulin Ratio 1.6 (1.0-2.8); Alkaline Phosphatase 69 U/L (38-126); Aspartate Aminotransferase 28 IU/L (17-59); Bilirubin Total 0.4 mg/dL (0.2-1.3); Blood Urea Nitrogen 12 mg/dL (9-20); Calcium 9.5 mg/dL (8.4-10.2); Carbon Dioxide 25 mmol/L (22-32); Chloride 104 mmol/L (98-107); Cholesterol 258 mg/dL (140-199); Estimated Glomerular Filt Rate > 60 mL/min (>60); Globulin 2.8 g/dL (1.7-4.1); Glucose 142 mg/dL (80-110); HDL Cholesterol 41 mg/dL (40-60); HEMOLYSIS < 15 (0-50); LDL Cholesterol Calculated 173 mg/dL (<100); Potassium 4.1 mmol/L (3.4-5.1); Sodium 140 mmol/L (137-145); Total Protein 7.3 g/dL (6.3-8.2); Triglycerides 220 mg/dL (35-150)
[2022-02-16 14:15] LABS: Microalbumin Urine Random 1.1 mg/dL (0-1.6)
[2022-02-16 14:16] LABS: Creatinine Urine Random 87.2 mg/dL; Microalbumi Creatinin Ratio Ur 12.6 ug/mg CR (<30)
== END ==
PROVIDERS: PCP Family Medicine; Referring Provider Family Medicine; Visit Provider Family Medicine
DX: E11.9 Type 2 diabetes mellitus without complications (principal); E78.00 Pure hypercholesterolemia, unspecified; E66.01 Morbid (severe) obesity due to excess calories; I25.10 Atherosclerotic heart disease of native coronary artery without angina pectoris
CPT/HCPCS: 36415; 80053; 80061; 82043; 82570; 83036

== ENCOUNTER → 2023-05-31 09:35 | Outpatient (CLI) | payer OTHER, SELFPAY ==
[2023-05-31 11:18] LABS: Add Manual Diff / Slide Review NO; Basophils Absolute Auto 0 /uL (0-100); Basophils Percent Auto 0.7 % (0-2); Eosinophils Absolute Auto 200 /uL (0-450); Eosinophils Percent Auto 4.5 % (2-4); Hematocrit 40.1 % (41-53); Lymphocytes Absolute Auto 2500 /uL (1100-4500); Lymphocytes Percent Auto 44.5 % (25-40); Mean Corpuscular Hemoglobin 30.4 PG (26-34); Monocytes Absolute Auto 400 /uL (0-900); Neutrophils Absolute Auto 2400 /uL (1500-7000); Neutrophils Percent Auto 43.3 % (50-75); Platelet Count 285 X10^3/uL (150-400); Red Blood Cell Count 4.61 X10^6/uL (4.5-5.9); Red Cell Distribution Width 13.4 % (11.6-14.8); White Blood Cell Count 5.6 X10^3/uL (4.5-11.0)
[2023-05-31 11:34] LABS: Hemoglobin A1C% w Est Avg Glu 7.2 % (4.0-6.0)
[2023-05-31 11:38] LABS: Alanine Aminotransferase 75 IU/L (<50); Albumin 4.6 g/dL (3.5-5.0); Albumin Globulin Ratio 1.4 (1.0-2.8); Alkaline Phosphatase 63 U/L (38-126); Aspartate Aminotransferase 57 IU/L (17-59); BUN Creatinine Ratio 16.9 (6-22); Bilirubin Total 0.6 mg/dL (0.2-1.3); Blood Urea Nitrogen 12 mg/dL (9-20); Calcium 9.9 mg/dL (8.4-10.2); Carbon Dioxide 23 mmol/L (22-32); Chloride 104 mmol/L (98-107); Cholesterol 254 mg/dL (140-199); Estimated Glomerular Filt Rate > 60 mL/min (>60); Globulin 3.4 g/dL (1.7-4.1); Glucose 154 mg/dL (80-110); HDL Cholesterol 30 mg/dL (40-60); HEMOLYSIS 40 (0-50); LDL Cholesterol Calculated 166 mg/dL (<100); Potassium 4.1 mmol/L (3.4-5.1); Sodium 138 mmol/L (137-145); Triglycerides 289 mg/dL (35-150); Uric Acid 7.8 mg/dL (3.5-8.5)
[2023-05-31 12:09] LABS: Prostate Specific Antigen Scrn 2.48 ng/mL (0.1-4.0)
[2023-05-31 12:14] LABS: TSH w/ Reflex to FT4 2.09 uIU/mL (0.47-4.68)
[2023-06-01 19:50] LABS: Creatinine Urine Random 66.6 mg/dL
[2023-06-01 20:01] LABS: Microalbumin Urine Random < 0.6 mg/dL (0-1.6)
== END ==
PROVIDERS: PCP Family Medicine; Referring Provider Physician Assistant; Visit Provider Physician Assistant
DX: Z12.5 Encounter for screening for malignant neoplasm of prostate (principal); E11.9 Type 2 diabetes mellitus without complications; I10 Essential (primary) hypertension; E78.00 Pure hypercholesterolemia, unspecified; I25.10 Atherosclerotic heart disease of native coronary artery without angina pectoris; E66.01 Morbid (severe) obesity due to excess calories; I63.9 Cerebral infarction, unspecified; M10.9 Gout, unspecified
CPT/HCPCS: 36415; 80053; 80061; 82043; 82570; 83036; 84443; 84550; 85025; G0103

== ENCOUNTER → 2023-08-31 07:44 | Outpatient (CLI) | payer OTHER, SELFPAY ==
[2023-08-31 09:27] LABS: Hemoglobin A1C% w Est Avg Glu 5.4 % (4.0-6.0)
[2023-08-31 09:42] LABS: Alanine Aminotransferase 34 IU/L (<50); Albumin 4.4 g/dL (3.5-5.0); Albumin Globulin Ratio 1.7 (1.0-2.8); Alkaline Phosphatase 72 U/L (38-126); Aspartate Aminotransferase 27 IU/L (17-59); BUN Creatinine Ratio 25.3 (6-22); Bilirubin Total 0.3 mg/dL (0.2-1.3); Blood Urea Nitrogen 22 mg/dL (9-20); Calcium 9.9 mg/dL (8.4-10.2); Carbon Dioxide 27 mmol/L (22-32); Chloride 106 mmol/L (98-107); Cholesterol 211 mg/dL (140-199); Estimated Glomerular Filt Rate > 60 mL/min (>60); Globulin 2.6 g/dL (1.7-4.1); Glucose 124 mg/dL (80-110); HDL Cholesterol 46 mg/dL (40-60); HEMOLYSIS < 15 (0-50); LDL Cholesterol Calculated 136 mg/dL (<100); Potassium 4.9 mmol/L (3.4-5.1); Sodium 140 mmol/L (137-145); Triglycerides 147 mg/dL (35-150); Uric Acid 6.9 mg/dL (3.5-8.5)
== END ==
PROVIDERS: Physician Assistant; PCP Family Medicine; Referring Provider Family Medicine; Visit Provider Family Medicine
DX: E11.9 Type 2 diabetes mellitus without complications (principal); I10 Essential (primary) hypertension; E78.2 Mixed hyperlipidemia; M10.9 Gout, unspecified; I25.10 Atherosclerotic heart disease of native coronary artery without angina pectoris
CPT/HCPCS: 36415; 80053; 80061; 83036; 84550

== ENCOUNTER → 2023-12-01 07:33 | Outpatient (CLI) | payer OTHER, SELFPAY ==
[2023-12-01 08:49] LABS: Hemoglobin A1C% w Est Avg Glu 5.7 % (4.0-6.0)
[2023-12-01 09:11] LABS: Cholesterol 221 mg/dL (140-199); HDL Cholesterol 47 mg/dL (40-60); LDL Cholesterol Calculated 149 mg/dL (<100); Triglycerides 124 mg/dL (35-150)
== END ==
PROVIDERS: PCP Family Medicine; Referring Provider Family Medicine; Visit Provider Family Medicine
DX: E11.9 Type 2 diabetes mellitus without complications (principal)
CPT/HCPCS: 36415; 80061; 83036

== ENCOUNTER → 2025-02-22 07:42 | Outpatient (CLI) | payer OTHER, SELFPAY ==
[2025-02-22 09:10] LABS: Add Manual Diff / Slide Review NO; Hematocrit 43.6 % (41-53); Hemoglobin 15.1 g/dL (13.5-17.5); Lymphocytes Absolute Auto 2100 /uL (1100-4500); Mean Corpuscular HGB Conc 34.6 % (30-36); Mean Corpuscular Hemoglobin 30.9 PG (26-34); Mean Corpuscular Volume 89.1 fL (80-100); Platelet Count 234 X10^3/uL (150-400)
[2025-02-22 09:54] LABS: Alanine Aminotransferase 42 IU/L (<50); Albumin 4.8 g/dL (3.5-5.0); Albumin Globulin Ratio 1.7 (1.0-2.8); Alkaline Phosphatase 54 U/L (38-126); Blood Urea Nitrogen 21 mg/dL (9-20); Calcium 9.7 mg/dL (8.4-10.2); Carbon Dioxide 21 mmol/L (22-32); Chloride 104 mmol/L (98-107); Cholesterol 215 mg/dL (140-199); Estimated Glomerular Filt Rate > 60 mL/min (>60); Globulin 2.9 g/dL (1.7-4.1); Glucose 133 mg/dL (70-99); HDL Cholesterol 46 mg/dL (40-60); Sodium 138 mmol/L (137-145); Total Protein 7.7 g/dL (6.3-8.2); Triglycerides 148 mg/dL (35-150)
[2025-02-22 09:59] LABS: HEMOLYSIS 98 (0-50)
[2025-02-22 10:02] LABS: Potassium 4.7 mmol/L (3.4-5.1)
[2025-02-22 10:04] LABS: Hemoglobin A1C% w Est Avg Glu 6.2 % (4.0-6.0)
[2025-02-22 10:33] LABS: Microalbumi Creatinin Ratio Ur 20.0 ug/mg CR (<30)
== END ==
PROVIDERS: PCP Family Medicine; Referring Provider Family Medicine; Visit Provider Family Medicine
DX: E11.9 Type 2 diabetes mellitus without complications (principal); I25.119 Atherosclerotic heart disease of native coronary artery with unspecified angina pectoris; I50.20 Unspecified systolic (congestive) heart failure; I21.29 ST elevation (STEMI) myocardial infarction involving other sites
CPT/HCPCS: 36415; 80053; 80061; 82043; 82570; 83036; 85025